=== PATIENT | female | born 1940 | race Caucasian/White ===

== ENCOUNTER 2019-01-10 13:48 | Emergency (ER) | payer MEDICARE, OTHER ==
[~2019-01-10] VITALS: Ht 154.9 cm; Wt 81.8 kg
[2019-01-10 14:00] VITALS: Ht 154.9 cm; Wt 81.8 kg
[2019-01-10] MEDS ORDERED: EC-NAPROSYN500 MG PO (15:39)
[2019-01-10] MEDS ORDERED: CYCLOBENZAPRINE10 MG PO (15:39)
[2019-01-10 15:58] VITALS: BP 142/82
== END 2019-01-10 15:58 | disposition home or self-care (01) ==
LOC: D.ER 13:48
DX: S83.92XA Sprain of unspecified site of left knee, initial encounter (principal); X58.XXXA Exposure to other specified factors, initial encounter; E11.9 Type 2 diabetes mellitus without complications; I10 Essential (primary) hypertension

== ENCOUNTER 2019-07-21 18:25 | Emergency (ER) | payer MEDICARE, OTHER ==
[~2019-07-21] VITALS: Ht 154.9 cm; Wt 81.8 kg
[~2019-07-21 18:25] MED LIST: CYCLOBENZAPRINE10 MG PO; EC-NAPROSYN500 MG PO
[2019-07-21 18:42] VITALS: Ht 154.9 cm; Wt 81.8 kg
[2019-07-21] MEDS ORDERED: TIROSINT88 MCG PO (19:01)
[2019-07-21] MEDS ORDERED: ZOCOR20 MG PO ×2 (19:02)
[2019-07-21] MEDS ORDERED: NORVASC10 MG PO (19:02)
[2019-07-21] MEDS ORDERED: COREG12.5 MG PO (19:02)
[2019-07-21] MEDS ORDERED: MEDROL DOSE PACK4 MG PO (19:03)
[2019-07-21 19:13] LABS: BASOPHILS 0.7 % (0-2); HEMATOCRIT 42.8 % (36.0-48.0); HEMOGLOBIN 13.5 g/dL (12-16); IMMATURE GRANULOCYTES 0.5 % (0-5); LYMPHOCYTES 33.5 % (15-50); MCH 28.1 pg (26.0-34.0); MCHC 31.5 g/dL (31.0-37.0); MEAN PLATELET VOLUME 11.5 fL (7.4-10.4); MONOCYTES 9.5 % (2-11); NEUTROPHILS 53.8 % (40-80); PLATELET COUNT 258 10x3/uL (130-400); RBC 4.81 10x6/uL (4.00-5.40); RDW 14.3 % (11.5-14.5); WBC 8.3 10x3/uL (4.8-10.8)
[2019-07-21 19:25] LABS: CALC OSMOLALITY 281 mosm/kg (275-300); CALCIUM 9.1 mg/dL (8.5-10.1); CARBON DIOXIDE 25.3 mmol/L (21.0-32.0); CHLORIDE - SERUM 101 mmol/L (98-107); CREATININE - SERUM 1.1 mg/dL (0.6-1.3); GLUCOSE 109 mg/dL (74-106); POTASSIUM - SERUM 3.9 mmol/L (3.5-5.1); SODIUM 136 mmol/L (136-145); UREA NITROGEN 37 mg/dL (7-18); eGFR NON AFRICAN AMERICAN 51 mL/min (90-120)
[2019-07-21 19:40] LABS: ALBUMIN 3.9 g/dL (3.4-5.0); ALKALINE PHOSPHATASE 74 U/L (30-120); ALT (SGPT) 33 U/L (10-68); CKMB 1.3 U/L (0.0-3.6); CREATINE KINASE 101 UL (21-215); MAGNESIUM - SERUM 2.7 mg/dL (1.8-2.4); PROTEIN - SERUM 7.8 g/dL (6.4-8.2)
[2019-07-21 19:49] LABS: INR 1.06 (0.85-1.17); PROTIME 13.8 SECONDS (11.6-15.0)
[2019-07-21 19:50] LABS: TROPONIN-I < 0.017 ng/mL (0.000-0.060)
[2019-07-21 21:04] VITALS: BP 164/84
== END 2019-07-21 21:04 | disposition home or self-care (01) ==
LOC: D.ER 18:25
PROVIDERS: Family Medicine
DX: I10 Essential (primary) hypertension (principal); R42 Dizziness and giddiness; E11.9 Type 2 diabetes mellitus without complications; E07.9 Disorder of thyroid, unspecified